=== PATIENT | female | born 1995 ===

== ENCOUNTER 2019-01-27 06:49 | Outpatient (CLI) | payer BC ==
--- NOTE | 2019-01-27 09:19 | ULT ---
ABDOMEN ULTRASOUND: HISTORY: Abnormal liver function tests. Hyperbilirubinemia. COMPARISON: None. FINDINGS: The head and body of the pancreas have a normal echotexture. The tail of the pancreas is obscured. The visualized IVC and aorta are unremarkable. The hepatic parenchyma has a normal echotexture. No hepatic masses or intrahepatic biliary dilatation . The contour of the hepatic margin is maintained. The right hepatic lobe measures 14.8 cm. The main portal vein is patent. Appropriate directional flow. The right kidney has a normal cortical echotexture. No hydronephrosis. The left kidney has a normal c ortical echotexture. No hydronephrosis. The right kidney measures 10.9 x 3.8 x 5.4 cm. The left kidney measures 5.0 x 10.3 x 6.2 cm. The spleen has a normal echotexture, measuring 9.8 cm. No sonographic evidence of cholelithiasis, gallbladder wall thickening or pericholecystic fluid. Comm on bile duct diameter is 0.4 cm. IMPRESSION: Unremarkable abdominal ultrasound. POS: [facility]
== END 2019-01-27 06:50 | disposition home or self-care (01) ==
LOC: BICULT 06:49
PROVIDERS: ATTEND Family Medicine
DX: E80.6 Other disorders of bilirubin metabolism (principal)
CPT/HCPCS: 76700